=== PATIENT | male | born 1960 | race Caucasian/White ===

== ENCOUNTER 2018-12-26 22:19 | Emergency (ER) | payer BC ==
[~2018-12-26] VITALS: Ht 165.1 cm; Wt 57.7 kg
[2018-12-26 22:34] VITALS: Ht 165.1 cm; Wt 57.7 kg
--- NOTE | 2018-12-26 22:55 | ERD ---
ER Documentation Chief Complaint Chief Complaint low ab pain x 8 hrs; hx HTN,Parkinson's Dse,asthma HPI History is obtained from patient's and family members. This is a 58-year-old man with a history of Parkinson's who presents to the emergency room for evaluation of abdominal pain. The patient states that he had abdominal pain for the past 12 hours and states that they went to an urgent care and was diagnosed with constipation. The patient's has tried giving him milk of magnesia however it is not helped with this patient's ability to use a restroom. The patient localizes the pain to the lower portion of the abdomen describes as a cramping pain. He denies any fevers, nausea, vomiting. He does state that he is passing gas. ROS All systems reviewed and are negative except as per history of present illness. Allergies Allergies: Coded Allergies: No Known Allergy (Unverified , 12/26/18) Physical Exam Vitals Vital Signs Date Temp Pulse Resp B/P (MAP) Pulse Ox O2 O2 Flow FiO2 Time Delivery Rate 12/26/18 45 18 137/87 98 Room Air 22:50 (104) 12/26/18 97.4 44 22 147/70 100 22:34 (95) Physical Exam INITIAL VITAL SIGNS: Reviewed by me GENERAL: The patient is well developed and appropriate for usual state of health in no apparent distress HEENT: Pupils equal, round, and reactive to light. EOMI. There is no scleral icterus. NECK: C-spine is soft and supple, there is no meningismus. There is no cervical lymphadenopathy. LUNGS: Clear to auscultation bilaterally. There are no rales, wheezes or rhonchi. HEART: Regular rate and rhythm, no murmurs, clicks, rubs or gallops. ABDOMEN: Tenderness to palpation in the suprapubic area, otherwise soft, non- tender, non-distended. There are bowel sounds in all four quadrants. No rebound or guarding. EXTREMITIES: There is no peripheral cyanosis or edema. No focal swelling or erythema. NEUROLOGICAL: Resting tremor noted, otherwise the patient moves all four extremities with 5/5 strength. Cranial nerves II - XII are intact. Normal gait. Alert and oriented SKIN: There is no apparent rash or petechiae. HEME/LYMPHATIC: There is no evidence of excessive bruising or lymphedema. PSYCHIATRIC: The patient does not appear anxious or depressed. Result Diagram: 12/26/18225612/26/182256 Results 24 hrs Laboratory Tests Test 12/26/18 22:57 White Blood Count 9.5 10^3/ul Red Blood Count 4.14 10^6/ul Hemoglobin 11.8 g/dl Hematocrit 37.6 % Mean Corpuscular Volume 90.8 fl Mean Corpuscular Hemoglobin 28.5 pg Mean Corpuscular Hemoglobin Concent 31.4 g/dl Red Cell Distribution Width 12.8 % Platelet Count 218 10^3/UL Mean Platelet Volume 11.4 fl Immature Granulocytes % 0.300 % Neutrophils % 74.3 % Lymphocytes % 16.8 % Monocytes % 6.5 % Eosinophils % 1.9 % Basophils % 0.2 % Nucleated Red Blood Cells % 0.0 /100WBC Immature Granulocytes # 0.030 10^3/ul Neutrophils # 7.0 10^3/ul Lymphocytes # 1.6 10^3/ul Monocytes # 0.6 10^3/ul Eosinophils # 0.2 10^3/ul Basophils # 0.0 10^3/ul Nucleated Red Blood Cells # 0.0 10^3/ul Sodium Level 142 mmol/L Potassium Level 4.5 mmol/L Chloride Level 104 mmol/L Carbon Dioxide Level 29 mmol/L Anion Gap 9 Blood Urea Nitrogen 24 mg/dl Creatinine 1.13 mg/dl Est Glomerular Filtrat Rate mL/min > 60 mL/min Glucose Level 161 mg/dl Calcium Level 9.3 mg/dl Total Bilirubin 0.8 mg/dl Direct Bilirubin 0.00 mg/dl Indirect Bilirubin 0.8 mg/dl Aspartate Amino Transf (AST/SGOT) 27 IU/L Alanine Aminotransferase (ALT/SGPT) 15 IU/L Alkaline Phosphatase 69 IU/L Total Protein 7.5 g/dl Albumin 4.2 g/dl Globulin 3.30 g/dl Albumin/Globulin Ratio 1.27 Lipase 45 U/L Current Medications Medications Dose Sig/Ariel Start Time Status Last (Trade) Ordered Route PRN Stop Time Admin Dose Reason Admin Morphine 2 mg ONCE STAT 12/26/18 DC 12/26/18 Sulfate IV 23:15 23:26 (morphine) 12/26/18 23:16 Magnesium 300 ml ONCE ONCE 12/27/18 DC 12/27/18 Citrate PO 01:00 01:05 (Citroma) 12/27/18 01:01 Procedures/MDM CT abdomen pelvis without: Several borderline dilated small bowel loops in the pelvis, nonspecific but possibly representing a partial/evolving small bowel obstruction or an adynamic ileus. No definite transition point is identified. This could be further evaluated with a small bowel follow-through examination if clinically warranted. Normal appendix. No hydronephrosis or urinary stone. Mild atherosclerotic arterial calcifications. Moderate to severe degenerative disc disease at L5-S1. This is a 58-year-old male who presents to the emergency room for evaluation of abdominal pain. The patient was seen at an urgent care was diagnosed with constipation. He states he has not had a bowel movement in the past 3 days. On my exam the patient had mild tenderness to palpation in the lower abdomen. CT the abdomen pelvis was obtained and does show dilated small bowel loops which could represent an ileus versus early partial small bowel obstruction. The patient was given IV analgesia, on reevaluation he is passing gas and does feel better. He was given magnesium citrate. The patient and his family members were advised to monitor the patient's pain and if the patient had a recurrence of his pain and will need to return to the emergency room for admission to the hospital for ileus and bowel obstruction. At this time the patient has bowel sounds in all 4 quadrants, he is nondistended, no peritoneal signs and is doing much better clinically. Family members and the patient okay to plan of care and will be discharged Departure Diagnosis: Primary Impression: Abdominal pain Additional Impression: Ileus Condition: BISHOP Flores DO Dec 26, 2018 22:55
[2018-12-26] MEDS ORDERED: morphine 2 MG INJ IV STA (23:15)
[2018-12-27] MEDS ORDERED: MAGNESIUM CITRATE 300 ML BTL PO ONE (01:00)
[2018-12-27 01:35] VITALS: BP 148/90; PULSE 57; RESP 18
== END 2018-12-27 01:43 | disposition home or self-care (01) ==
LOC: E/R 22:19
DX: K56.7 Ileus, unspecified (principal); I10 Essential (primary) hypertension; J45.909 Unspecified asthma, uncomplicated; G20 Parkinson's disease
CPT/HCPCS: 74176; 80053; 83690; 85025; 96374